=== PATIENT | female | born 1950 | race Caucasian/White ===

== ENCOUNTER → 2018-01-15 | Outpatient (REF) | payer MEDICARE, OTHER | END | disposition home or self-care (01) | LOC: BD 08:46 | PROVIDERS: ATTEND Nurse Practitioner | DX: N95.1 Menopausal and female climacteric states (principal) ==

== ENCOUNTER 2018-01-29 08:42 | Emergency (ER) | payer MEDICARE, OTHER ==
[~2018-01-29] VITALS: Ht 157.5 cm; Wt 70.0 kg
[2018-01-29 09:39] VITALS: BP 132/70
== END 2018-01-29 09:41 | disposition home or self-care (01) ==
LOC: ED 08:42
DX: S63.501A Unspecified sprain of right wrist, initial encounter (principal); I10 Essential (primary) hypertension; X50.1XXA Overexertion from prolonged static or awkward postures, initial encounter

== ENCOUNTER 2018-02-25 07:22 | Day surgery (SDC) | payer MEDICARE, OTHER ==
[~2018-02-25] VITALS: Ht 157.5 cm; Wt 81.6 kg
[~2018-02-25 07:22] MED LIST: ALLI60 MG PO; ATORVASTATIN CA40 MG PO; OMEPRAZOLE20 MG PO; SG ASA LOW81 M1 PO; TRAMADOL HYDROC50 MG PO; ZESTRIL10 M1 PO; [UNRECOGNIZED DRUG - OTHER] PO; [UNRECOGNIZED DRUG - OTHER] PO; [UNRECOGNIZED DRUG - OTHER] PO
[2018-02-25 11:01] VITALS: BP 112/70
== END 2018-02-25 10:10 | disposition home or self-care (01) ==
LOC: ENDO 07:22
PROVIDERS: ATTEND Surgery
PROC: 0DBL8ZX Excision of Transverse Colon, Via Natural or Artificial Opening Endoscopic, Diagnostic (ICD-10-PCS; principal; 2018-02-25)
DX: Z12.11 Encounter for screening for malignant neoplasm of colon (principal); K57.30 Diverticulosis of large intestine without perforation or abscess without bleeding; K50.10 Crohn's disease of large intestine without complications; Q43.8 Other specified congenital malformations of intestine

== ENCOUNTER 2018-09-30 15:09 | Emergency (ER) | payer MEDICARE, OTHER ==
[~2018-09-30] VITALS: Ht 157.5 cm; Wt 169.0 kg
[2018-09-30 16:06] VITALS: BP 142/82
== END 2018-09-30 16:15 | disposition home or self-care (01) ==
LOC: ED 15:09
PROC: 2W3MX1Z Immobilization of Left Lower Extremity using Splint (ICD-10-PCS; principal; 2018-09-30)
DX: S92.355A Nondisplaced fracture of fifth metatarsal bone, left foot, initial encounter for closed fracture (principal); W10.9XXA Fall (on) (from) unspecified stairs and steps, initial encounter; Y93.01 Activity, walking, marching and hiking; Y92.009 Unspecified place in unspecified non-institutional (private) residence as the place of occurrence of the external cause

== ENCOUNTER 2022-09-19 12:05 | Emergency (ER) | payer MEDICARE ==
[~2022-09-19] VITALS: Ht 157.5 cm; Wt 72.5 kg
[2022-09-19 12:11] VITALS: BP 143/80
[2022-09-19 12:21] VITALS: BP 151/85
[2022-09-19 12:31] VITALS: BP 145/125
[2022-09-19 13:00] VITALS: BP 130/72
[2022-09-19 14:00] VITALS: BP 142/59
[2022-09-19 14:13] VITALS: BP 142/59
[2022-09-19] MEDS ORDERED: TRAMADOL HYDROC50 M1 PO (14:18)
[2022-09-19] MEDS ORDERED: ZOFRAN4 MG/TAB PO (14:18)
== END 2022-09-19 14:22 | disposition home or self-care (01) ==
LOC: ED 12:05
PROC: 0HQ0XZZ Repair Scalp Skin, External Approach (ICD-10-PCS; principal; 2022-09-19)
DX: S01.01XA Laceration without foreign body of scalp, initial encounter (principal); M54.50 Low back pain, unspecified; M47.812 Spondylosis without myelopathy or radiculopathy, cervical region; I10 Essential (primary) hypertension; W17.89XA Other fall from one level to another, initial encounter

== ENCOUNTER 2023-11-24 08:12 | Day surgery (SDC) | payer MEDICARE ==
[~2023-11-24] VITALS: Ht 157.5 cm; Wt 68.0 kg
[~2023-11-24 08:12] MED LIST changes: +AMLODIPINE BESYL5 MG PO; +COZAAR50 MG PO; +TRAMADOL HYDROC50 M1 PO; +WELLBUTRIN XL300 MG PO; +ZOFRAN4 MG/TAB PO
[2023-11-24] MEDS ORDERED: LACTATED RINGER'S 1,000 ML IV ONE (08:38)
[2023-11-24] MEDS ORDERED: FAMOTIDINE 10MG/ML 2ML SDV IV ONE (08:38)
[2023-11-24 11:07] VITALS: BP 159/81
[2023-11-24] MEDS ORDERED: GLYCOPYRROLATE 0.2 MG/ML IV ONE (12:22)
[2023-11-24] MEDS ORDERED: LIDOCAINE HCL 2% 2ML SDV IV ONE (12:22)
[2023-11-24] MEDS ORDERED: PROPOFOL 200 MG/20 ML VIAL IV ONE (12:22)
== END 2023-11-24 11:21 | disposition home or self-care (01) ==
LOC: ORM 08:12
PROVIDERS: ATTEND Internal Medicine Gastroenterology
PROC: 0DBK8ZX Excision of Ascending Colon, Via Natural or Artificial Opening Endoscopic, Diagnostic (ICD-10-PCS; principal; 2023-11-24)
PROC: 0DBN8ZX Excision of Sigmoid Colon, Via Natural or Artificial Opening Endoscopic, Diagnostic (ICD-10-PCS; 2023-11-24)
DX: K57.30 Diverticulosis of large intestine without perforation or abscess without bleeding (principal); D12.2 Benign neoplasm of ascending colon; K63.5 Polyp of colon; K64.8 Other hemorrhoids; Q43.9 Congenital malformation of intestine, unspecified; I10 Essential (primary) hypertension; E78.2 Mixed hyperlipidemia; K21.9 Gastro-esophageal reflux disease without esophagitis; Z86.718 Personal history of other venous thrombosis and embolism; Z90.5 Acquired absence of kidney; Z87.891 Personal history of nicotine dependence